=== PATIENT | male | born 1970 | race Caucasian/White ===

== ENCOUNTER 2017-06-24 17:25 | Inpatient (IN) | payer OTHER ==
[2017-06-24] MEDS ORDERED: IOPAMIDOL (ISOVUE 370) 100 ML BTL IV ONE (18:22)
--- NOTE | 2017-06-24 18:35 | EDPHY ---
H & P Time Seen by Provider: 06/24/17 18:06 HPI/ROS: CHIEF COMPLAINT: Right-sided chest pain HISTORY OF PRESENT ILLNESS: 47-year-old man has been traveling to [facility] and is real for work. He had a cough and the beginning of May which went away but has been having some intermittent right-sided rib pain. This has been worse over the last 10 days and he noticed that while he was traveling at trouble working out because when he is take a deep breath the pain got a lot worse. He came back to home and is primary care physician Dr. George Donnelly ordered a D- dimer test which is elevated at 6.31. Patient still has right rib pain. It is located in the mid axillary line does not radiate and is worse with exertion or deep breath. Symptoms moderate. Duration is outlined in the HPI. REVIEW OF SYSTEMS: Eye: no change in vision ENT: no sore throat Cardiac: HPI Pulmonary: No hemoptysis Abdomen: no vomiting, diarrhea, abdominal pain Musculoskeletal: No leg swelling Skin: no rash Neuro: no headache Constitutional: no fever : no urinary symptoms A comprehensive 10 point review of systems is otherwise negative aside from elements mentioned in the history of present illness. PAST MEDICAL HISTORY: Includes shoulder surgery Social history: Recent travel as outlined in the HPI, nonsmoker General Appearance: Alert and conversant, cooperative. Eyes: No scleral icterus. ENT, Mouth: Normal mucous membranes. Respiratory: Breath sounds equal, lungs are clear to auscultation. No crepitus. He is splinting. Cardiovascular: Regular rate and rhythm. Gastrointestinal: Abdomen is soft and non tender. Neurological: Alert and oriented x3. Normally conversant. Face symmetric, normal movement and sensation in all extremities. Skin: Warm and dry, no rashes. Musculoskeletal: No calf tenderness or leg swelling. He does have intermittent point tenderness over several areas on the lateral side of his right chest. Psychiatric: Not agitated. Emergency Department course/MDM: Labs from earlier today reviewed include white blood cell count 9.9, hematocrit 37, platelets 387k, creatinine 1.0 and D-dimer 6.3. CT angiography discussed and consented. 1843: Multi lobar pneumonia but no pulmonary embolism, right pleural effusion per Dr. Nicole. 1901: Discussed with patient's primary care physician Dr. Donnelly. Blood cultures, lactate screening, IV fluids, broad-spectrum antibiotics. 1938: Lactate 0.6, ceftriaxone and azithromycin ordered and started in the emergency department. IV normal saline 1 L. Does not appear to have evidence of sepsis. Smoking Status: Never smoked Constitutional: Initial Vital Signs Temperature (C) 36.9 C 06/24/17 17:28 Heart Rate 88 06/24/17 17:28 Respiratory Rate 16 06/24/17 17:28 Blood Pressure 163/69 H 06/24/17 17:28 O2 Sat (%) 93 06/24/17 17:28 O2 Delivery Mode Room Air Allergies/Adverse Reactions: No Known Allergies Allergy (Unverified 06/24/17 17:27) Home Medications: Medication Instructions Recorded Herbals/Supplements -Info Only 1 ea PO DAILY 06/24/17 Ibuprofen [Motrin (*)] 600 mg PO Q6 PRN 06/24/17 Medical Decision Making - Diagnostics Imaging Results: Imaging Impressions Chest/Thorax CTA 06/24/17 18:18 Impression: 1. Right middle and lower lobe pneumonia with a partially loculated small right pleural effusion, as above. Recommend CT follow-up in 8-10 weeks to verify resolution. 2. Right hilar and mediastinal lymphadenopathy, and prominent anterior subdiaphragmatic nodes, are likely reactive. 3. Mild cardiomegaly. Dr. Quinteros discussed these findings by telephone with GABRIEL SILVA on 2016 at 18:44. Differential Diagnosis: Differential diagnosis considered for chest pain including but not limited to myocardial ischemia, aortic dissection, pericarditis, pulmonary embolus, chest wall pain, pleural inflammation and pulmonary infectious causes. Consult/Admit Bed Type: [place] [id number] - Data Points Medications Given: Ceftriaxone Sodium/Dextrose (Rocephin 1 Gm (Premix)) 50 mls @ 100 mls/hr IV DAILY RUPERT PRN Reason: Protocol Stop: 07/25/17 08:59 Last Admin: 06/24/17 19:45 Dose: 50 mls Discontinued Medications Sodium Chloride (Ns) 1,000 mls @ 0 mls/hr IV EDNOW ONE; Wide Open PRN Reason: Protocol Stop: 06/24/17 19:01 Last Admin: 06/24/17 19:18 Dose: 1,000 mls Departure - Departure Disposition: [facility] Inpatient Acute Clinical Impression: Pleural effusion on right Pneumonia Qualifiers: Pneumonia type: due to unspecified organism Laterality: right Lung location: unspecified part of lung Qualified Code(s): J18.9 - Pneumonia, unspecified organism Condition: Good
[2017-06-24] MEDS ORDERED: NS 1,000 ML IV ONE (19:00)
[2017-06-24] MEDS ORDERED: ONDANSETRON DISINTEGRATING 4 MG TAB PO PRN (19:00)
[2017-06-24] MEDS ORDERED: ONDANSETRON 4 MG/2 ML VIAL IVP PRN (19:00)
[2017-06-24] MEDS ORDERED: CEFTRIAXONE 1 GM/DEXTROSE/50 ML BAG IV ONE (19:39)
[2017-06-24] MEDS ORDERED: diphenhydrAMINE 25 MG CAP PO PRN (21:41)
[2017-06-24] MEDS ORDERED: IBUPROFEN 600 MG TAB PO PRN (21:44)
[2017-06-24] MEDS: AZITHROMYCIN IV 500 MG in D5W 250 ML IV SCH (21:56)
[2017-06-24 22:35] LABS: % IMMATURE GRANULYOCYTES 0.6 % (0.0-1.1); ABSOLUTE IMMATURE GRANULOCYTES 0.05 10^3/uL (0.00-0.10); ADD DIFF? NO; ADD MORPH? NO; ADD SCAN? NO; ATYPICAL LYMPHOCYTE FLAG 10 (0-99); FRAGMENT RBC FLAG 0 (0-99); HEMATOCRIT 36.5 % (40.0-51.0); HEMOGLOBIN 12.4 g/dL (13.7-17.5); LEFT SHIFT FLG 0 (0-99); LIPEMIA HEMOLYSIS FLAG 90 (0-99); MEAN CELL HEMOGLOBIN 30.7 pg (27.9-34.1); MEAN CELL VOLUME 90.3 fL (81.5-99.8); MEAN PLATELET VOLUME 8.5 fL (8.7-11.7); PLATELET CLUMPS FLAG 10 (0-99); PLATELET COUNT 404 10^3/uL (150-400); RED BLOOD CELL COUNT 4.04 10^6/uL (4.40-6.38); RED CELL DISTRIBUTION WIDTH 11.8 % (11.5-15.2)
--- NOTE | 2017-06-24 22:38 | GHP ---
[f rep st] HISTORY AND PHYSICAL DATE OF ADMISSION: 06/24/2017 CHIEF COMPLAINT: Chest discomfort. HISTORY OF PRESENT ILLNESS: A 47-year-old male with no significant past medical history, who travels for work who developed symptoms of cough and mild shortness of breath at the end of April near [facility]. The patient reported he had symptoms for couple of weeks which then seem to resolve. He was able to resume his normal work-out activities without too much difficulty. Then in early June, the patient traveled to [facility] and [facility], and while on this trip develop worsening shortness of br eath with associated chest discomfort, particularly when coughing or taking deep breaths. The patien t was seen by physicians in both [facility] and [facility] where he was told his breath sounds were normal and that it was likely something musculoskeletal. The patient flew back from [facility] today and was co mmunicating with Dr. Donnelly electronically who sent him for D-dimer, which was positive. Imaging was o btained. The patient admitted for pneumonia. Upon my interview, the patient is endorsing simply not feeling great, low energy, denies fevers. Has mild rhinorrhea on feels fatigued. He denies any changes in his bowel habits. He denies nausea or vomiting. He denies any rashes or skin changes. He denies any dysuria. He denies hematuria and den ies any sputum from his cough. PAST MEDICAL HISTORY: None. SOCIAL HISTORY: Negative for tobacco. Alcohol is occasional. No illicit drugs or marijuana. He is and has 3 children. REVIEW OF SYSTEMS: A 10-point review of systems is negative with the exception of that reported in t he HPI. PHYSICAL EXAMINATION: VITAL SIGNS: Blood pressure 142/86, heart rate 65, respiratory rate 16. He i s 94% on room air at 36.9. GENERAL: This is a healthy-appearing male who does appear fatigued on my exam. HEENT: Notable for moist mucous membranes. Eye exam is negative for any icterus. CARDIAC: The patient is regular rate and rhythm. PULMONARY: The patient has diminished breath sounds at the right base with rhonchi in the mid right lung field. Otherwise, no rales or wheezes. GASTROINTESTIN AL: Positive bowel sounds. ABDOMEN: Nontender. MUSCULOSKELETAL: Negative for any lower extremity edema. SKIN: Exam is negative for any rashes. NEUROLOGIC: He is alert and oriented x3. PSYCHIATR IC: He has a flat affect on my interview and examination. LABORATORY DATA: White count is 9.9; baseline appears to be closer to 4. Hematocrit is 37.5, which is below recent baseline as well. Platelets are 387. D-dimer is 6.31. Creatinine is 1.0. Sodium i s 138. IMAGING STUDIES: CT of the chest which I personally reviewed and interpreted, shows multifocal pneum onia on the right side with pleural effusion, which is loculated. ASSESSMENT AND PLAN: This is a 47-year-old male, presenting with chest discomfort. 1. Community-acquired pneumonia. Suspect the patient's initial symptoms were likely viral with seco ndary bacterial conversion. Blood cultures were obtained from the emergency department. Empiric ant ibiotics with azithromycin and ceftriaxone have been initiated. We will follow up on the respiratory pathogen PCR and blood cultures in the morning. The patient is on room air. If his leukocytosis is improved and blood cultures are negative, he may be candidate for disposition in the morning. I hav e written the patient for Benadryl this evening for his rhinorrhea and Mucinex to assist in expectora tion if possible. 2. Leukocytosis. Presumed secondary to pneumonia. We will follow after initiation of antibiotics. 3. Pleuritic pain. The patient is written for both acetaminophen and ibuprofen. Optimistic we will not need anything stronger for pain control. 4. Prophylaxis with Lovenox until the patient is more active. 5. Diet is regular. 6. Disposition: Less than 2 midnights if the patient responds well to antibiotics. He does look sic k on my initial evaluation, so this may actually take greater than 2 midnights before he is safe for disposition home. Difficult to predict currently. I have discussed the case with the emergency department physician. The patient will be triaged to [facility] medical-surgical floor for care. /[id number]/MODL
[2017-06-24 22:44] LABS: INR 1.13 (0.83-1.16); PROTIME(PATIENT) 14.7 SEC (12.0-15.0)
[2017-06-24 22:47] LABS: ANION GAP 12 mEq/L (8-16); CARBON DIOXIDE 27 mEq/l (22-31); CHLORIDE 104 mEq/L (97-110); GLOMERULAR FILTRATION RATE > 60; GLUCOSE 115 mg/dL (70-100); POTASSIUM 4.4 mEq/L (3.5-5.2); SODIUM 143 mEq/L (134-144)
[2017-06-24 22:58] LABS: BILIRUBIN,TOTAL < 0.1 mg/dL (0.1-1.4)
[2017-06-25] MEDS: guaiFENesin 600 MG TAB.ER PO SCH ×3 (02:07→20:16)
[2017-06-25] MEDS: ACETAMINOPHEN 325 MG TAB PO PRN ×2 (05:06→11:33)
[2017-06-25 05:17] LABS: % IMMATURE GRANULYOCYTES 0.6 % (0.0-1.1); ABSOLUTE IMMATURE GRANULOCYTES 0.05 10^3/uL (0.00-0.10); ADD DIFF? NO; ADD MORPH? NO; ADD SCAN? NO; ATYPICAL LYMPHOCYTE FLAG 10 (0-99); FRAGMENT RBC FLAG 0 (0-99); HEMATOCRIT 40.1 % (40.0-51.0); HEMOGLOBIN 13.6 g/dL (13.7-17.5); LEFT SHIFT FLG 0 (0-99); LIPEMIA HEMOLYSIS FLAG 90 (0-99); MEAN CELL HEMOGLOBIN 30.6 pg (27.9-34.1); MEAN CELL HEMOGLOBIN CONCENTR. 33.9 g/dL (32.4-36.7); MEAN CELL VOLUME 90.1 fL (81.5-99.8); MEAN PLATELET VOLUME 8.5 fL (8.7-11.7); PLATELET CLUMPS FLAG 10 (0-99); PLATELET COUNT 437 10^3/uL (150-400); RED BLOOD CELL COUNT 4.45 10^6/uL (4.40-6.38); RED CELL DISTRIBUTION WIDTH 11.9 % (11.5-15.2)
[2017-06-25 05:42] LABS: ANION GAP 15 mEq/L (8-16); CALCIUM 9.4 mg/dL (8.5-10.4); CARBON DIOXIDE 27 mEq/l (22-31); CHLORIDE 101 mEq/L (97-110); CREATININE 0.9 mg/dL (0.7-1.3); GLOMERULAR FILTRATION RATE > 60; GLUCOSE 94 mg/dL (70-100); POTASSIUM 4.8 mEq/L (3.5-5.2); SODIUM 143 mEq/L (134-144)
[2017-06-25] MEDS: AZITHROMYCIN IV 500 MG in D5W 250 ML IV SCH (08:31)
[2017-06-25] MEDS ORDERED: Herbals/Supplements -Info Only PO SCH (09:00)
[2017-06-25] MEDS ORDERED: ENOXAPARIN 40 MG/0.4 ML SYR SC SCH (09:00)
--- NOTE | 2017-06-25 14:02 | HOSPPROG ---
Hospitalist Progress Note Assessment/Plan: 47y male with c/o SOB and cough. First encounter, chart reviewed. D/W Dr Alberts. #PNA cont abx #Pleural effusion await pulm consult reviewed with radiology unclear plan do to distribution of pockets #Rhinovirus supportive care #Pleuritic chest pain related to above #Dispo unclear, await pulmonology consult and recs pt eager to go home Subjective: Feels ok. Tired with cough. Objective: Vital Signs Temp Pulse Resp BP Pulse Ox 36.7 C 82 16 148/93 H 91 L 06/25/17 08:00 06/25/17 12:00 06/25/17 12:00 06/25/17 12:00 06/25/17 12:00 Microbiology 06/24/17 22:22 Respiratory Panel (PCR) - Final Nasal, Sinus - Swab Human Rhinovirus/Enterovirus Laboratory Results 06/25/17 05:09 06/25/17 05:09 06/24/17 06/25/17 06/26/17 05:59 05:59 05:59 Intake Total 450 Balance 450 PT 14.7 SEC (12.0-15.0) 06/24/17 22:22 INR 1.13 (0.83-1.16) 06/24/17 22:22 - Physical Exam Constitutional: appears nourished, not in pain, uncomfortable Eyes: PERRL, anicteric sclera, EOMI Ears, Nose, Mouth, Throat: moist mucous membranes, hearing normal, ears appear normal Cardiovascular: regular rate and rhythym, No JVD, No edema Respiratory: no respiratory distress, no rales or rhonchi, reduced air movement Gastrointestinal: normoactive bowel sounds, No tenderness, No ascites Skin: warm, normal color, No erythema Musculoskeletal: normal joint ROM, no joint effusions, generalized weakness Neurologic: AAOx3 Psychiatric: interacting appropriately, not anxious, not encephalopathic, thought process linear ICD10 Worksheet Patient Problems: Problems Problem Status Onset Pneumonia Acute Pleural effusion on right Acute
--- NOTE | 2017-06-25 15:21 | ASMTCMCOM ---
CM Note CM Note Notes: Pt admitted with shortness of breath and cough. Per MD notes, pt w/ community acquired pnuemonia, pulmonary effusion and rhinovirus. Pt travels frequently for his job and is . Anticipate pt will likely discharge home independently w/ family support when medically stable. CM will cont to follow. Current discharge plan: Home independently Date Signed: 06/25/2017 03:20 PM Electronically Signed By:Mayela Weathers RN
--- NOTE | 2017-06-25 15:22 | PDMN ---
Medical Necessity Medical necessity: C/M review: Patient meets INPT criteria under [facility] M-282 Pneumonia, community acquired; Acute and persistent community acquired pneumonia , shortness of breath, cough, RML and RLL pneumonia with partially loculated right pleural effusion on chest CTA, acute rhinovirus, pleuritic chest pain, requiring planned Pulmonary consult, ongoing IV Azithramycin QD, IV Ceftriaxone QD, droplet isolation. FACT CHECKER anticipates > 2 MN LOS for ongoing med nec for eval and TX of above.
--- NOTE | 2017-06-25 22:13 | GCON ---
[f rep st] CONSULTATION PULMONARY CONSULTATION DATE OF CONSULTATION: 06/25/2017 REASON FOR CONSULTATION: Pneumonia, pleural effusion. HISTORY: The patient is a 47-year-old healthy gentleman. He travels significantly for his work. Ar ound Halloween, he noticed some cough and some mild chest pain on the right, which then resolved. He was able to exercise normally. He was not sick at this time. He left for [facility] and then went on to [facility], leaving in early June. He felt well for the first several days in [facility], but then developed fatigue, cough, and right-sided chest pain. He was seen by a physician there, but no x-ra y was obtained and pneumonia was not suspected. He then traveled to [facility]. He did not feel well in [place], quite fatigued and lethargic for him. Chest pain persisted, as did cough. He brought up so me yellow mucus. He did not have fevers and chills per se, but certainly did not feel well. He was short of breath with exertional activities. He flew back from [facility] yesterday and came to the emerg ency department. D-dimer was elevated. A CT angiogram of the chest was thus obtained. This showed no evidence of pulmonary embolic disease, however, there were some infiltrates/atelectasis on the rig ht and some ground-glass opacities. There is also associated right-sided effusion, which appears to be at least partially loculated. There is some hilar and mediastinal adenopathy, likely reactive. The patient was admitted, started on antibiotics for community-acquired pneumonia. PAST MEDICAL HISTORY: Unremarkable. MEDICATIONS: He takes no medications on a regular basis, has no medical problems. SOCIAL HISTORY: , 3 children. Office is in [place]. Travels nationally and internationally. No history of tobacco abuse. No history of significant alcohol. No hot tub. Exposures recently re lated airline travel. He did swim in the ocean in [place] and a hotel pool, which he felt were fernando n. FAMILY HISTORY: Noncontributory. REVIEW OF SYSTEMS: A 10-point review of systems is negative, except as outlined above. He does cont inue to have some right-sided chest pain with inspiration and movement that is not clearly sharp or p leuritic, more dull. He is coughing and occasionally brings up a small amount of [id number] muc us. He denies fevers, chills, or sweats. He feels he is somewhat better compared to how he felt on admission. PHYSICAL EXAMINATION: GENERAL: Reveals a pleasant gentleman, fit appearing, sitting comfortably in bed. He requires no oxygen. VITAL SIGNS: Blood pressure is 130/90, heart rate 80 and regular. Res piratory rate is 16. He is afebrile. HEENT: Unremarkable for lymphadenopathy or thyromegaly. Ther e is no jugular venous distention. There is no obvious pharyngitis. CHEST: Reveals decreased breat h sounds on the right side. No rub is present. Some rales are present. There are no E to A changes or signs of significant consolidation. Some mild dullness may be present. Left side is clear. HEA RT: Regular in rate and rhythm. There are no significant murmurs, no gallops. ABDOMEN: Soft, nont kathe. Bowel sounds are present. EXTREMITIES: Within normal limits, as is the neurologic examinati on. SKIN: Without rash or lesions. DATA BASE: CT angiogram is as described in the HPI. LABORATORY: White blood cell count is 8400, hematocrit 40, platelets are slightly high. PT and PTT are normal. Lactate on admission was less than 1. Chemistries are within normal limits. ASSESSMENT: Community-acquired pneumonia. This did develop as he started traveling to [facility] and then [facility]. However, he was sick early on in [facility] and remained ill throughout his several days in [facility]. I do not believe that this represents an unusual organism associated with travel. He had no exposure to individuals that were known to be ill and he was not in places where there were chron ically ill individuals. Current antibiotics are appropriate. He does have loculated pleural fluid. It would be important to rule out empyema. PLAN AND RECOMMENDATIONS: Current antibiotics will be continued. Other therapies will be continued. Enoxaparin will be held in the a.m. I will request an ultrasound-guided thoracentesis tomorrow. T his will be sent for Gram stain, culture, chemistries if there is enough fluid. Further plans and recommendations will be made based on the results of the thoracentesis. All of the above was discussed with the patient. /[id number]/MODL
[2017-06-26] MEDS: ACETAMINOPHEN 325 MG TAB PO PRN (02:58)
[2017-06-26 08:23] VITALS: BP 149/97; PULSE 83; RESP 16; TEMP 98; O2SAT 90
[2017-06-26] MEDS: guaiFENesin 600 MG TAB.ER PO SCH (08:51)
[2017-06-26] MEDS: AZITHROMYCIN IV 500 MG in D5W 250 ML IV SCH (09:35)
--- NOTE | 2017-06-26 13:38 | SOAPPROG ---
SOAP Progress Note Assessment/Plan: Assessment/Plan: Community-acquired pneumonia. Right sided with associated small areas of loculated pleural fluid. Not enough to do thoracentesis today. Clinically doing well. He will be discharged on Levaquin today to complete a 14 day course. I will see him back in the office in 2-3 weeks with a new chest x-ray. I will get a chest x-ray today prior to his discharge. I gave him my number, specific instructions, and a request for a follow-up chest x-ray to be done before I see him back. I discussed return to exercise, risks of tendinosis. Subjective: Feeling a little better? No fevers, chills. Cough/sputum seems to be less. Still has some anterior right chest discomfort Objective: Vital Signs Temp Pulse Resp BP Pulse Ox 36.7 C 83 16 149/97 H 90 L 06/26/17 08:00 06/26/17 08:00 06/26/17 08:00 06/26/17 08:00 06/26/17 08:00 06/25/17 06/26/17 06/27/17 05:59 05:59 05:59 Intake Total 450 Balance 450 PT 14.7 SEC (12.0-15.0) 06/24/17 22:22 INR 1.13 (0.83-1.16) 06/24/17 22:22 Physical Exam - Physical Exam General Appearance: alert, no apparent distress EENT: other (On room air) Neck: normal inspection Respiratory: decreased breath sounds (At right base with some rales laterally. No rub), rales, No pleural rub Cardiac/Chest: regular rate, rhythm Abdomen: normal bowel sounds, non-tender, soft Skin: normal color, warm/dry Extremities: No pedal edema Neuro/Psych: no motor/sensory deficits, No cognition abnormalities ICD10 Worksheet Patient Problems: Problems Problem Status Onset Pneumonia Acute Pleural effusion on right Acute
--- NOTE | 2017-06-26 15:25 | GDS ---
[f rep st] DISCHARGE SUMMARY DISCHARGE DIAGNOSES: 1. Community-acquired pneumonia. 2. Loculated pleural fluid. PHYSICAL EXAM: GENERAL: The patient is alert. VITAL SIGNS: Afebrile at 36.7, pulse 83, respirator y rate 16, blood pressure is 149/97, saturating 90% on room air. I have seen and evaluated the patie nt on the day of discharge. HOSPITAL COURSE: The patient is a 47-year-old male who presented to the emergency room with complain ts of cough and shortness of breath. He was evaluated and diagnosed with community-acquired pneumoni a, as well as loculated multiple small pleural effusions. During this hospitalization, he received a consultation from Pulmonology as well as Radiology. A thoracentesis was ordered; however, during ul trasound it was felt that the fluid collections were not large enough to obtain a sample from. The p atwayne has been continued on oral Levaquin for a total of 14-day course, and a repeat chest x-ray has been done prior to his disposition. He will follow up with Dr. Alberts in the outpatient setting and assure resolution of his acute infectious process. There are no pending studies at the time of dispo sition. DISCHARGE MEDICATIONS: Prescription for Levaquin 750 mg daily, #14 has been provided for the patient at time of discharge. He will follow up with his primary care physician, Dr. George Donnelly. I have spent greater than 35 lorin mor in the care, coordination, and management of the patient's disposition. /[id number]/MODL
--- NOTE | 2017-06-26 16:34 | ASDISCHSUM ---
Discharge Information Plan Status:Home with No Needs Medically Cleared to Leave:06/25/2017 Discharge Date:06/26/2017 04:10 PM CM D/C Disposition:Home, Routine, Self-Care ADT D/C Disposition:Home, Routine, Self-Care Projected Discharge Date:06/26/2017 12:00 AM Transportation at D/C: Discharge Delay Reason: Follow-Up Date:06/26/2017 12:00 AM Discharge Slot: Final Diagnosis: Placement Information Patient Contact Information Contact Name:GRACY Relationship: Address:[address] City:[place] Alternate Phone: State/Zip Code:[place] [address] Email: Financial Information Financial Class:HMO and PPO Plans Primary Plan Desc:[employer] Primary Plan Number:[id number] Secondary Plan Desc: Secondary Plan Number: Assessment Information [facility] CM Progress Note CM Note CM Note Notes: Pt admitted with shortness of breath and cough. Per MD notes, pt w/ community acquired pnuemonia, pulmonary effusion and rhinovirus. Pt travels frequently for his job and is . Anticipate pt will likely discharge home independently w/ family support when medically stable. CM will cont to follow. Current discharge plan: Home independently Date Signed: 06/25/2017 03:20 PM Electronically Signed By:Mayela Weathers RN Intervention Information
== END 2017-06-26 16:10 | disposition home or self-care (01) | DRG 194 ==
LOC: INTOOBSV 19:00 → F3N 20:03 → OBSVTOIN 06-25 15:04
PROVIDERS: ADMIT Hospitalist; ATTEND Hospitalist
DX: J18.8 Other pneumonia, unspecified organism (principal); J91.8 Pleural effusion in other conditions classified elsewhere; B34.8 Other viral infections of unspecified site
CPT/HCPCS: G0378; J0456; J0696; J1650; Q9967

== ENCOUNTER → 2017-07-14 | Outpatient (CLI) | payer OTHER | LOC: FIMAGING 12:54 | PROVIDERS: ATTEND Family Medicine | DX: J18.1 Lobar pneumonia, unspecified organism (principal) ==